=== PATIENT | female | born 1995 | race Caucasian/White ===

== ENCOUNTER 2018-03-05 10:49 | Outpatient (REF) | payer BC, SELFPAY ==
[2018-03-05 12:56] LABS: Abs Immature Grans 0.02 k/cumm (0.0-0.09); Absolute Basophil Count 0.06 k/cumm (0.0-0.2); Absolute Lymphocyte Count 2.96 k/cumm (1.2-3.4); Absolute Neutrophil Count 4.57 k/cumm (1.2-6.7); Basophils % 0.7; Eosinophils % 2.3; HCT 43.1 % (36.0-46.0); HGB 15.1 g/dL (12.0-15.5); Immature Grans % 0.2; Mean Corpuscular Volume 94.1 fL (80-95); Mean Platelet Volume 9.8 fL (8.0-11.0); Monocytes % 10.3; Neutrophils % 52.5; Platelet Count 330 x1000/uL (130-400); RBC 4.58 m/cumm (4.00-5.20); RBC Distribution Width 12.5 % (11.7-14.6); White Blood Cell Count 8.71 k/cumm (4.4-10.8)
[2018-03-05 13:16] LABS: Iron 91 ug/dL (50-175); Total Iron Binding Capacity 358 ug/dL (250-450); Transferrin Sat 25 % (15-50)
[2018-03-05 13:18] LABS: ALT 48 U/L (12-78); AST 13 U/L (15-37); Alkaline Phosphatase 106 U/L (46-116); Anion Gap 11.1 mmol/L (3-11); BUN 11 mg/dL (7-18); Bilirubin, Total 0.6 mg/dL (0.2-1.0); CO2 25.9 mmol/L (21.0-32.0); CREATININE 0.91 mg/dL (0.55-1.02); Calcium 8.9 mg/dL (8.5-10.1); Chloride 102 mmol/L (98-107); Ferritin 234 ng/mL (8-388); Glucose 111 mg/dL (70-100); Potassium 4.3 mmol/L (3.5-5.1); Sodium 139 mmol/L (136-145); Total Protein 7.4 g/dL (6.4-8.2)
== END 2018-03-05 10:50 ==
LOC: NCHCN 10:49
PROVIDERS: PCP Nurse Practitioner; Visit Provider Nurse Practitioner
DX: R19.7 Diarrhea, unspecified (principal)
CPT/HCPCS: 80053; 82728; 83540; 83550; 85025

== ENCOUNTER 2018-03-13 20:47 | Emergency (ER) | payer BC, SELFPAY ==
[2018-03-13 21:00] VITALS: BP 135/98; PULSE 102; RESP 18; TEMP 37.1; O2SAT 94
[2018-03-13 21:07] VITALS: O2SAT 96
[2018-03-13 21:10] VITALS: O2SAT 96
--- NOTE | 2018-03-13 21:18 | ED.GENADUL_ITS ---
Disposition Clinical Impression: Diarrhea, Abdominal cramping, Nausea Disposition: HOME Condition: Good Instructions: Acute Diarrhea (ED), Abdominal Pain (ED) Additional Instructions: Be sure to stay hydrated, Gatorade is fine. BRAT diet (bananas, rice, applesauce, toast) if you want to try eating. Be sure to contact primary care on Friday for follow-up. Return to ED for worsening abdominal pain, fever, bloody diarrhea, persistent vomiting. Prescriptions: Ondansetron ODT [Zofran Odt] 4 mg PO Q6H PRN #15 tabef PRN Reason: Nausea / Vomiting Referrals: Clara Davidson [Primary Care Provider] - Medical Decision Making - Lab Data Results reviewed for labs ordered during visit: Yes - Radiology Data Radiology results: report reviewed - Medical Decision Making Patient presenting with 3 weeks of diarrhea with worsening abdominal pain at this point. She has mildly diffuse tender abdomen. She does look a little dehydrated. IV will be established, fluids and Zofran ordered. Laboratory studies including stool studies if she is able to provide a sample ordered. CT scan of the abdomen pelvis to evaluate for colitis or inflammatory bowel disease is ordered. Patient's laboratory studies for the most part are unremarkable. test negative. Electrolytes normal. White count normal. C. difficile toxin negative. Other stool studies pending. CT scan of the abdomen pelvis shows no acute process. Patient does feel somewhat better after fluids and Zofran. She is able to tolerate liquids so we will have her to continue this at home. We will have her start a BRAT diet to see if this helps with the diarrhea. She will need to follow-up with primary care to get the referral to GI. We will need to contact her if any of her stool studies are positive. She should return if she develops fever, vomiting, worsening abdominal pain, bloody diarrhea. History of Present Illness - General Chief complaint: Abd Prob Stated complaint: UNKNOWN Time Seen by Provider: 03/13/18 20:48 Source: patient Mode of arrival: ambulatory Limitations: no limitations - History of Present Illness Initial comments: Patient presents to the ED with complaints of diarrhea and abdominal pain. She has also developed some nausea. Patient reports onset of watery diarrhea 3 weeks ago. Today is the first day that it has decreased and she has only had a couple episodes. In the last 3 days she has developed stabbing/cramping/ intermittent abdominal pain. Previously she had had some cramping pain prior to having diarrhea. She is now having more persistent yet intermittent cramping. She also has developed nausea. She really has not been eating because that makes her diarrhea worse. She has been able to hydrate and drink until today the nausea is been bothering her. There has been no fever. She has had no travel outside the [place]. She has had no recent antibiotic exposure. She has not been drinking from [place]. She does not work in healthcare. She has not really had problems like this previously. She did see her primary care who was supposed to refer her to GI but she has not heard back from them yet. She has developed a headache today. She has no other neurologic symptoms. - Related Data Ondansetron ODT [Zofran Odt] 4 mg PO Q6H PRN #15 tabef 03/14/18 Allergies Allergy/AdvReac Type Severity Reaction Status Date / Time Penicillins Allergy Intermediate Skin Rash Unverified 03/13/18 21:12 Review of Systems Constitutional: chills, malaise. denies: fever Eyes: denies: eye pain, vision change ENT: denies: ear pain, congestion Respiratory: denies: cough, shortness of breath Cardiovascular: denies: chest pain Gastrointestinal: abdominal pain, nausea, diarrhea. denies: vomiting, hematochezia Genitourinary: denies: urgency, dysuria, frequency Musculoskeletal: denies: back pain Skin: denies: rash Neurological: headache. denies: weakness, numbness Past Medical History - Past Medical History Medical history: no medical history Surgical history: no surgical history Psychiatric history: anxiety, depression - Social History Smoking status: never smoker Alcohol use: none Drug use: none General Exam - General Limitations: no limitations General appearance: alert, in no apparent distress - Head Head exam: Present: atraumatic, normocephalic - Eye Eye exam: Present: normal apperance. Absent: scleral icterus - ENT ENT exam: Present: mucous membranes dry - Neck Neck exam: Present: normal inspection, full ROM - Respiratory Respiratory exam: Present: normal lung sounds bilaterally - Cardiovascular Cardiovascular Exam: Present: regular rate, normal rhythm, normal heart sounds - GI/Abdominal GI/Abdominal exam: Present: soft, tenderness (Mild diffuse tenderness). Absent : distended, guarding, rebound, rigid - Extremities Exam Extremities exam: Present: normal inspection. Absent: tenderness - Back Exam Back exam: Absent: CVA tenderness (R), CVA tenderness (L) - Neurological Exam Neurological exam: Present: alert, oriented X3, CN II-XII intact. Absent: motor sensory deficit - Psychiatric Psychiatric exam: Present: normal affect, normal mood - Skin Skin exam: Present: warm, dry, intact Course Vital Signs - 24 hr 03/13/18 21:00 Temperature 98.8 F Pulse 102 H Respiratory 18 Rate Blood Pressure 135/98 Pulse Oximetry 94 L
--- NOTE | 2018-03-13 21:36 | DI.RPTCT_ITS ---
SYMPTOM/DIAGNOSIS: ABDOMINAL PAIN AND DIARRHEA CT ABDOMEN AND PELVIS: Comparison is made with 08 August 2017. Images were performed from the lung bases through the ischial tuberosities after IV and oral contrast. The lung bases are clear. The liver, spleen, gallbladder, pancreas, kidneys and adrenals as well as bladder appear normal. The uterus and ovaries are unremarkable. The appendix is normal in diameter. The small bowel and colon are well opacified with oral contrast and no inflammatory changes or dilatation is seen. There is no free air or free fluid. IMPRESSION: Negative CT of the abdomen and pelvis.
[2018-03-13 21:38] VITALS: O2SAT 97
[2018-03-13] MEDS: Lactated Ringers 1,000 ML 1000 ML IV (22:11)
[2018-03-13 22:12] LABS: Abs Immature Grans 0.01 k/cumm (0.0-0.09); Absolute Basophil Count 0.07 k/cumm (0.0-0.2); Absolute Eosinophil Count 0.13 k/cumm (0.0-0.7); Absolute Monocyte Count 0.86 k/cumm (0.11-0.7); Absolute Neutrophil Count 4.96 k/cumm (1.2-6.7); Basophils % 0.8; Eosinophils % 1.5; HCT 44.8 % (36.0-46.0); HGB 16.1 g/dL (12.0-15.5); Immature Grans % 0.1; Lymphocytes % 30.9; Mean Corp. HGB Concentration 35.9 g/dL (32.0-36.0); Mean Corpuscular Hemoglobin 33.1 pg (27.0-33.0); Mean Corpuscular Volume 92.2 fL (80-95); Mean Platelet Volume 9.1 fL (8.0-11.0); Monocytes % 9.9; Neutrophils % 56.8; Platelet Count 387 x1000/uL (130-400); RBC 4.86 m/cumm (4.00-5.20); RBC Distribution Width 12.4 % (11.7-14.6); White Blood Cell Count 8.73 k/cumm (4.4-10.8)
[2018-03-13] MEDS: Ondansetron 4 MG/2 ML VIAL IVP (22:12)
[2018-03-13] MEDS: Ketorolac 30 MG/ML VIAL 15 MG IVP (22:12)
[2018-03-13 22:27] LABS: HCG Qual (Serum) Negative
[2018-03-13 22:29] LABS: ALT 40 U/L (12-78); AST 17 U/L (15-37); Albumin 4.2 g/dL (3.4-5.0); Alkaline Phosphatase 94 U/L (46-116); Anion Gap 9.6 mmol/L (3-11); BUN 7 mg/dL (7-18); Bilirubin, Total 1.2 mg/dL (0.2-1.0); CO2 30.4 mmol/L (21.0-32.0); CREATININE 0.91 mg/dL (0.55-1.02); Calcium 9.2 mg/dL (8.5-10.1); Chloride 102 mmol/L (98-107); Glucose 84 mg/dL (70-100); Lipase 94 U/L (73-393); Magnesium 2.3 mg/dL (1.8-2.4); Potassium 3.9 mmol/L (3.5-5.1); Sodium 142 mmol/L (136-145); Total Protein 8.3 g/dL (6.4-8.2)
[2018-03-13] MEDS: Omnipaque 350 MG/ML 100 ML BTL IJ (23:19)
[2018-03-13 23:22] VITALS: O2SAT 97
[2018-03-13 23:27] VITALS: BP 118/103; PULSE 97; O2SAT 99
--- NOTE | 2018-03-13 23:38 | DI.VRAD_ITS ---
EXAM: CT Abdomen and Pelvis With Intravenous Contrast CLINICAL HISTORY: 23 years old, female; Pain; Abdominal pain TECHNIQUE: Axial computed tomography images of the abdomen and pelvis with intravenous contrast. Coronal and sagittal reformatted images were created and reviewed. COMPARISON: CT - UPPER ABD WITH CONTRAST (P) 2017-08-08 13:28 FINDINGS: Lung bases: Unremarkable. No mass. No consolidation. ABDOMEN: Liver: Unremarkable. No mass. Gallbladder and bile ducts: Unremarkable. No calcified stones. No ductal dilation. Pancreas: Unremarkable. No mass. No ductal dilation. Spleen: Unremarkable. No splenomegaly. Adrenals: Unremarkable. No mass. Kidneys and ureters: Unremarkable. No solid mass. No hydronephrosis. Stomach and bowel: Unremarkable. No obstruction. No mucosal thickening. PELVIS: Appendix: Normal appendix. Bladder: Unremarkable. No mass. Reproductive: Unremarkable as visualized. ABDOMEN and PELVIS: Intraperitoneal space: Unremarkable. No free air. No significant fluid collection. Bones/joints: No acute fracture. No dislocation. Soft tissues: Unremarkable. Vasculature: Unremarkable. No abdominal aortic aneurysm. Lymph nodes: Unremarkable. No enlarged lymph nodes. IMPRESSION: No acute findings. Dictated and Authenticated by: Moises Lawson MD. Ordering:ABDIAS RIOS MD
[2018-03-14 00:37] VITALS: BP 115/93; PULSE 95; RESP 18; O2SAT 99
[2018-03-16 14:07] LABS: Campylobacter PCR SEE COMMENTS; Salmonella PCR SEE COMMENTS; Shiga Toxin PCR SEE COMMENTS; Shigella/Enteroinvasive Ecoli SEE COMMENTS
== END 2018-03-14 00:37 | disposition home or self-care (01) ==
PROVIDERS: Emergency Provider Emergency Medicine; PCP Nurse Practitioner
DX: R11.0 Nausea (principal); R19.7 Diarrhea, unspecified; R10.84 Generalized abdominal pain
CPT/HCPCS: 36415; 80053; 81025; 83690; 87329; 87505; 96374; 96375; 99285; 74177; 83735; 84703; 85025; 87324; J1885; J2405; J3490

== ENCOUNTER 2018-04-23 06:09 | Emergency (ER) | payer BC, SELFPAY ==
[2018-04-23 06:13] VITALS: BP 132/85; PULSE 91; RESP 18; TEMP 36.5; O2SAT 98
[2018-04-23 06:18] LABS: Bilirubin Negative (Negative); Blood Negative (Negative); Clarity Sl Cloudy; Glucose Negative (Negative); Ketones Negative (Negative); Leukocyte Esterase Small (Negative); Nitrite Negative (Negative); Specific Gravity <= 1.005 (1.005-1.025); Urobilinogen 0.2 EU/dL (Up TO 0.2); pH 5.5 (5-8)
--- NOTE | 2018-04-23 06:24 | W.ED.GENAD ---
Discharge Plan Disposition Patient Disposition: HOME Condition: Good Discharge Details Chief Complaint: Urinary Clinical Impression: UTI (urinary tract infection) Primary Care Provider: Clara Davidson ED Provider: Mynor Swartz Meds and New Rx's Prescriptions: New phenazopyridine 100 mg tablet 100 mg PO TID Qty: 5 RF: 0 nitrofurantoin monohyd/m-cryst 100 mg capsule 100 mg PO BID Qty: 9 RF: 0 Continue khrdqefx-qmjyhtlk-imtfgdc fum [Multi Vitamin] 9 mg iron/15 mL Liquid 1 tab PO DAILY RF: 0 lactobacillus combination no.4 [Probiotic] 3 billion cell Capsule 1 cap PO DAILY RF: 0 Discharge Instructions Instructions: Urinary Tract Infection in Women (ED) Additional Instructions: Take medications as prescribed. You have had your first dose here. Follow-up with primary care next week if not better. Return to ED if fever, flank pain, vomiting, other concerns. Referrals: Clara Davidson [Primary Care Provider] - Medical Decision Making MDM Narrative Medical decision making narrative: Patient with urinary symptoms consistent with UTI. No systemic signs or symptoms. Vitals good. Urine is negative. U/A is contaminated but symptoms and history consistent so will simply treat for cystitis. Patient requesting Diflucan as she always gets yeast infection with antibiotics. Will give MacroBid and Pyridium for UTI. Follow up with PCP if not better. Return to ED for fever, flank pain, vomiting, other concerns. Lab Data Lab results reviewed: Yes I reviewed the patient's lab results. Lab Results 04/23/18 Range/Units 06:10 Urine Color Yellow (Yellow) Urine Clarity Sl cloudy Urine pH 5.5 (5-8) Ur Specific [place] <= 1.005 (1.005-1.025) Urine Protein Negative (Negative) mg/dL Urine Ketones Negative (Negative) mg/dL Urine Blood Negative (Negative) Urine Nitrite Negative (Negative) Urine Bilirubin Negative (Negative) Urine Urobilinogen 0.2 (Up TO 0.2) EU/dL Ur Leukocyte Esterase Small H (Negative) Urine Glucose Negative (Negative) mg/dL HPI - General Adult General Mode of arrival: ambulatory. Date/Time Provider Initiated Documentation: 04/23/18 06:24. Limitations to Documentation: no limitations. Information obtained by: patient. HPI Narrative: Patient presents with dysuria and urgency that started within the last day. Has a long history of UTIs. Denies fever, chills, flank pain, hematuria, pelvic pain, abdominal pain. Is supposed to be leaving for vacation tomorrow morning. Related Data Home Medications Medication Instructions Recorded Confirmed lactobacillus combination no.4 1 cap PO DAILY 04/23/18 04/23/18 [Probiotic] [id number]-dxrwyoeh-vobzgbx fum 1 tab PO DAILY 04/23/18 04/23/18 [Multi Vitamin] Previous Rx's Medication Instructions Recorded nitrofurantoin monohyd/m-cryst 100 mg PO BID #9 cap 04/23/18 phenazopyridine 100 mg PO TID #5 tab 04/23/18 Allergies Allergy/AdvReac Type Severity Reaction Status Date / Time Penicillins Allergy Intermediate Skin Rash Unverified 04/23/18 06:16 General Stated Complaint: Urinary GLADYS: 4 Review of Systems Constitutional Denies chills, Denies fever(s), Denies malaise and Denies weakness Gastrointestinal Denies abdominal pain, Denies diarrhea, Denies nausea and Denies vomiting Genitourinary Denies hematuria, Reports dysuria, Denies pelvic pain, Denies flank pain, Reports urinary urgency and Denies vaginal discharge Neurologic Denies weakness [facility] Social History Smoking/Tobacco Use Status: Never Exam Const General: cooperative, comfortable and no acute distress Orientation: alert and oriented x3 GI Inspection: non-distended Palpation: soft, not firm and nontender Back/Spine/Pelvis Back: no CVA tenderness Neuro General: alert, oriented x3, no focal motor deficits and CN's II-XI intact bilaterally Course Vital Signs Temperature 97.7 F 04/23/18 06:13 Pulse 91 H 04/23/18 06:13 Respiratory Rate 18 04/23/18 06:13 Blood Pressure 132/85 04/23/18 06:13 Pulse Oximetry 98 04/23/18 06:13 Temperature 97.7 F 04/23/18 06:13 Pulse 91 H 04/23/18 06:13 Respiratory Rate 18 04/23/18 06:13 Blood Pressure 132/85 04/23/18 06:13 Pulse Oximetry 98 04/23/18 06:13 Lab/Test Results Lab/Test Results: Laboratory Tests 04/23/18 06:10 Urine Color Yellow Urine Clarity Sl cloudy Urine pH 5.5 Ur Specific [place] <= 1.005 Urine Protein Negative Urine Ketones Negative Urine Blood Negative Urine Nitrite Negative Urine Bilirubin Negative Urine Urobilinogen 0.2 Ur Leukocyte Esterase Small H Urine Glucose Negative Lab Results 04/23/18 Range/Units 06:10 Urine Color Yellow (Yellow) Urine Clarity Sl cloudy Urine pH 5.5 (5-8) Ur Specific [place] <= 1.005 (1.005-1.025) Urine Protein Negative (Negative) mg/dL Urine Ketones Negative (Negative) mg/dL Urine Blood Negative (Negative) Urine Nitrite Negative (Negative) Urine Bilirubin Negative (Negative) Urine Urobilinogen 0.2 (Up TO 0.2) EU/dL Ur Leukocyte Esterase Small H (Negative) Urine Glucose Negative (Negative) mg/dL
[2018-04-23 06:26] LABS: Bacteria Rare HPF (Negative); C & S Indicated? No/Sq. Contamination; Casts Negative LPF (Negative); Crystals Negative HPF (Negative); Epithelial Cells Many HPF (Negative); Mucus Negative (Negative); RBC 0-2 (0-2); WBC 0-2 HPF (0-5)
--- NOTE | 2018-04-23 06:32 | ED.GENADUL_ITS ---
Discharge Plan Disposition Patient Disposition: HOME Condition: Good Discharge Details Chief Complaint: Urinary Clinical Impression: UTI (urinary tract infection) Primary Care Provider: Clara Davidson ED Provider: Mynor Swartz Meds and New Rx's Prescriptions: New phenazopyridine 100 mg tablet 100 mg PO TID Qty: 5 RF: 0 nitrofurantoin monohyd/m-cryst 100 mg capsule 100 mg PO BID Qty: 9 RF: 0 Continue syltkjhr-blfqauxa-reetcch fum [Multi Vitamin] 9 mg iron/15 mL Liquid 1 tab PO DAILY RF: 0 lactobacillus combination no.4 [Probiotic] 3 billion cell Capsule 1 cap PO DAILY RF: 0 Discharge Instructions Instructions: Urinary Tract Infection in Women (ED) Additional Instructions: Take medications as prescribed. You have had your first dose here. Follow-up with primary care next week if not better. Return to ED if fever, flank pain, vomiting, other concerns. Referrals: Clara Davidson [Primary Care Provider] - Medical Decision Making MDM Narrative Medical decision making narrative: Patient with urinary symptoms consistent with UTI. No systemic signs or symptoms. Vitals good. Urine is negative. U/A is contaminated but symptoms and history consistent so will simply treat for cystitis. Patient requesting Diflucan as she always gets yeast infection with antibiotics. Will give MacroBid and Pyridium for UTI. Follow up with PCP if not better. Return to ED for fever, flank pain, vomiting , other concerns. Lab Data Lab results reviewed: Yes I reviewed the patient's lab results. Lab Results 04/23/18 Range/Units 06:10 Urine Color Yellow (Yellow) Urine Clarity Sl cloudy Urine pH 5.5 (5-8) Ur Specific [place] <= 1.005 (1.005-1.025) Urine Protein Negative (Negative) mg/dL Urine Ketones Negative (Negative) mg/dL Urine Blood Negative (Negative) Urine Nitrite Negative (Negative) Urine Bilirubin Negative (Negative) Urine Urobilinogen 0.2 (Up TO 0.2) EU/dL Ur Leukocyte Esterase Small H (Negative) Urine Glucose Negative (Negative) mg/dL HPI - General Adult General Mode of arrival: ambulatory . Date/Time Provider Initiated Documentation: 04/23/18 06:24 . Limitations to Documentation: no limitations . Information obtained by: patient . HPI Narrative: Patient presents with dysuria and urgency that started within the last day. Has a long history of UTIs. Denies fever, chills, flank pain, hematuria, pelvic pain, abdominal pain. Is supposed to be leaving for vacation tomorrow morning. Related Data Home Medications Medication Instructions Recorded Confirmed lactobacillus combination no.4 1 cap PO DAILY 04/23/18 04/23/18 [Probiotic] bdqmlgye-zmftdrch-dmbnvck fum 1 tab PO DAILY 04/23/18 04/23/18 [Multi Vitamin] Previous Rx's Medication Instructions Recorded nitrofurantoin monohyd/m-cryst 100 mg PO BID #9 cap 04/23/18 phenazopyridine 100 mg PO TID #5 tab 04/23/18 Allergies Allergy/AdvReac Type Severity Reaction Status Date / Time Penicillins Allergy Intermediate Skin Rash Unverified 04/23/18 06:16 General Stated Complaint: Urinary GLADYS: 4 Review of Systems Constitutional Denies chills, Denies fever(s), Denies malaise and Denies weakness Gastrointestinal Denies abdominal pain, Denies diarrhea, Denies nausea and Denies vomiting Genitourinary Denies hematuria, Reports dysuria, Denies pelvic pain, Denies flank pain, Reports urinary urgency and Denies vaginal discharge Neurologic Denies weakness [facility] Social History Smoking/Tobacco Use Status: Never Exam Const General: cooperative, comfortable and no acute distress Orientation: alert and oriented x3 GI Inspection: non-distended Palpation: soft, not firm and nontender Back/Spine/Pelvis Back: no CVA tenderness Neuro General: alert, oriented x3, no focal motor deficits and CN's II-XI intact bilaterally Course Vital Signs Temperature 97.7 F 04/23/18 06:13 Pulse 91 H 04/23/18 06:13 Respiratory Rate 18 04/23/18 06:13 Blood Pressure 132/85 04/23/18 06:13 Pulse Oximetry 98 04/23/18 06:13 Temperature 97.7 F 04/23/18 06:13 Pulse 91 H 04/23/18 06:13 Respiratory Rate 18 04/23/18 06:13 Blood Pressure 132/85 04/23/18 06:13 Pulse Oximetry 98 04/23/18 06:13 Lab/Test Results Lab/Test Results: Laboratory Tests 04/23/18 06:10 Urine Color Yellow Urine Clarity Sl cloudy Urine pH 5.5 Ur Specific [place] <= 1.005 Urine Protein Negative Urine Ketones Negative Urine Blood Negative Urine Nitrite Negative Urine Bilirubin Negative Urine Urobilinogen 0.2 Ur Leukocyte Esterase Small H Urine Glucose Negative Lab Results 04/23/18 Range/Units 06:10 Urine Color Yellow (Yellow) Urine Clarity Sl cloudy Urine pH 5.5 (5-8) Ur Specific [place] <= 1.005 (1.005-1.025) Urine Protein Negative (Negative) mg/dL Urine Ketones Negative (Negative) mg/dL Urine Blood Negative (Negative) Urine Nitrite Negative (Negative) Urine Bilirubin Negative (Negative) Urine Urobilinogen 0.2 (Up TO 0.2) EU/dL Ur Leukocyte Esterase Small H (Negative) Urine Glucose Negative (Negative) mg/dL
[2018-04-23] MEDS: Fluconazole 150 MG TAB PO (06:38)
[2018-04-23] MEDS: MacroBID 100 MG CAP PO (06:38)
[2018-04-23] MEDS: Phenazopyridine 100 MG TAB PO (06:38)
[2018-04-23 06:51] VITALS: BP 132/85; PULSE 91; RESP 18; TEMP 36.5; O2SAT 98
== END 2018-04-23 06:51 | disposition home or self-care (01) ==
PROVIDERS: Emergency Provider Emergency Medicine; PCP Nurse Practitioner
DX: N39.0 Urinary tract infection, site not specified (principal); Z87.440 Personal history of urinary (tract) infections
CPT/HCPCS: 81025; 99283; 81003; 81015

== ENCOUNTER 2018-04-27 11:48 | Outpatient (REF) | payer BC, SELFPAY | END 2018-04-27 12:08 | LOC: NCHCN 11:48 | PROVIDERS: PCP Nurse Practitioner; Visit Provider Nurse Practitioner | DX: N91.1 Secondary amenorrhea (principal); Z87.440 Personal history of urinary (tract) infections | CPT/HCPCS: 87086 ==

== ENCOUNTER 2018-05-05 21:06 | Emergency (ER) | payer BC, SELFPAY ==
[2018-05-05 21:11] VITALS: BP 146/98; PULSE 99; RESP 16; TEMP 36.7; O2SAT 99
[2018-05-05 21:34] LABS: Bilirubin Negative (Negative); Blood Negative (Negative); Clarity Clear; Glucose Negative (Negative); Ketones Negative (Negative); Leukocyte Esterase Negative (Negative); Nitrite Negative (Negative); Specific Gravity <= 1.005 (1.005-1.025); Urobilinogen 0.2 EU/dL (Up TO 0.2); pH 5.5 (5-8)
--- NOTE | 2018-05-05 21:38 | DI.CT_ITS ---
SYMPTOM/DIAGNOSIS: RLQ PAIN ABDOMEN AND PELVIC CT: CT scan of the abdomen and pelvis was performed following the uneventful administration of intravenous contrast material. Comparison is made with . The lung bases show no acute abnormalities. The liver is unremarkable. The portal and superior mesenteric veins have a normal appearance. The gallbladder is contracted but unremarkable. No biliary ductal dilatation is seen. The pancreas, spleen and adrenal glands are unremarkable. The kidneys show normal and symmetric enhancement. No evidence of a solid renal mass or obstruction. The urinary bladder is intact. The reproductive organs are unremarkable. Note is made of a dominant cyst on the left ovary measuring 2.9 cm. The aorta is of normal caliber. No significant abdominal or pelvic adenopathy, ascites or pneumoperitoneum is present. The bowel shows no evidence of obstruction or infection or inflammation. There is a normal appendix seen in the right lower quadrant. The bones are intact. IMPRESSION: No evidence of an acute abdomen.
--- NOTE | 2018-05-05 21:49 | W.ED.GENAD ---
Discharge Plan Disposition Patient Disposition: HOME Condition: Good Discharge Details Chief Complaint: Urinary Clinical Impression: Bacterial vaginosis, Dysuria Primary Care Provider: Clara Davidson ED Provider: Mynor Swartz Meds and New Rx's Prescriptions: New metronidazole 500 mg tablet 500 mg PO BID Qty: 13 RF: 0 Continue detdtpgv-etgogrrm-bvnkmpt fum [Multi Vitamin] 9 mg iron/15 mL Liquid 1 tab PO DAILY RF: 0 lactobacillus combination no.4 [Probiotic] 3 billion cell Capsule 1 cap PO DAILY RF: 0 phenazopyridine 100 mg tablet 100 mg PO TID Qty: 5 RF: 0 doxycycline monohydrate 100 mg Capsule 100 mg PO BID RF: 0 Discharge Instructions Instructions: Metronidazole (By mouth), Bacterial Vaginosis (ED) Additional Instructions: Will start you on Flagyl for bacterial vaginosis but it is unclear whether this is causing some your symptoms or not. Please do not drink alcohol. Follow[facility]up in [facility] within the next week. We will also refer you to urology since most of these symptoms appear to be urinary in nature. Return to ED for fever, vomiting, worsening abdominal pain, other concerns. Referrals: [facility] [Provider Group] [facility] [Provider Group] Discharge Data Discharge Date/Time-TO BE ENTERED AT DEPARTURE: 05/06/18 00:48 Medical Decision Making <Fredy Flynn DO - Last Filed: 05/06/18 13:32> This is a pleasant 23-year-old female who presents for urinary symptoms Week she has been he has been on 2 full courses of antibiotics the first is Bactrim the second was doxycycline. She has notable right lower quadrant pain on exam, as well as left and right CVA tenderness. Urinalysis is completely benign. No white count on WBC/CBC. We will get a CT scan to evaluate for any acute pathology, including appendicitis, intra-abdominal abscess, or other acute pathology. The patient CT scan results demonstrate no acute process. There is a 2.7 cm cyst per virtual radiology but no evidence of acute appendicitis or other abnormality. Vaginal exam was performed with female nurse at bedside, no significant discharge, no erythema, no lesions. No active bleeding. Patient did have mild tenderness on cervical motion, as well as mild tenderness on bimanual exam. Of note with cervical motion tenderness she did have radiation to her umbilical region. We are waiting on vaginal pathology reports. I do not think that Rocephin or doxycycline are indicated at this time as she had a prolonged course of back and doxycycline already. Gonorrhea or chlamydia results return positive then she may need additional treatment. Patient will require outpatient follow-up with both gynecology and urology. We will facilitate this. The case will be signed out to my colleague Dr. Swartz who will follow up on the vaginal smear results, necessary treatment, and final discharge paperwork. I have extensively reviewed the treatment plan and discharge instructions with the patient. I have addressed all patient concerns at this time. The patient was made aware of what symptoms to monitor for that would warrant a return to the emergency department. Discussed the plan with the patient, they demonstrate verbal understanding and agreement with our assessment and plan at this time. HPI <Fredy Flynn, - Last Filed: 05/06/18 13:32> General Date/Time Provider Initiated Documentation: 05/05/18 21:37. HPI Narrative: This is a 23-year-old female with no significant past medical history who presents today for evaluation of urinary frequency, and suprapubic pain. Patient states that she is diagnosed with urinary tract infection 2 weeks ago, started on Bactrim, and had a full course of this with no improvement of her symptoms. She was then switched to a 7-day course of doxycycline. She has completed the doxycycline and still has no improvement. In addition to that she states that her pain has actually worsened with increased urinary frequency, increased pressure, and she now states that she has back/flank pain on her left and right side. She denies any vomiting but does admit to some mild nausea. Patient denies any other complaints at this time she denies any recent surgeries. She denies any IV or illicit drug use. She denies any pertinent family history except for her father had a history of bladder cancer. She denies any vaginal discharge, hematuria, fever, or chills. She has no other complaints. Related Data Home Medications Medication Instructions Recorded Confirmed lactobacillus combination no.4 1 cap PO DAILY 04/23/18 05/05/18 [Probiotic] uhjhwgqf-zixfdfqr-mtopqtj fum 1 tab PO DAILY 04/23/18 05/05/18 [Multi Vitamin] phenazopyridine 100 mg PO TID #5 tab 04/23/18 05/05/18 doxycycline monohydrate 100 mg PO BID 05/05/18 05/05/18 metronidazole 500 mg PO BID #13 tab 05/06/18 Previous Rx's Medication Instructions Recorded phenazopyridine 100 mg PO TID #5 tab 04/23/18 metronidazole 500 mg PO BID #13 tab 05/06/18 Allergies Allergy/AdvReac Type Severity Reaction Status Date / Time Penicillins Allergy Intermediate Skin Rash Unverified 05/05/18 21:16 General Stated Complaint: Urinary GLADYS: 4 Review of Systems <Fredy Flynn DO - Last Filed: 05/06/18 13:32> Review of Systems All systems reviewed & are unremarkable except as noted in HPI and below Exam <Fredyvinayak Flynn - Last Filed: 05/06/18 13:32> Narrative Exam Narrative: 1.Const: Well-nourished, Well-developed, appearing stated age 2.Eyes: PERRL, no conjunctival injection, and symmetrical lids. 3.ENT: Atraumatic external nose and ears. Moist MM. Neck: Symmetric, trachea midline, No thyromegaly. 4.CVS: +S1/S2, No murmurs or gallops. Peripheral pulses 2+ and equal in all extremities. Brisk capillary refill in all extremities. 5.RESP: Unlabored respiratory effort. Clear to auscultation bilaterally. No wheezes rales or rhonchi 6.GI: Soft, notable tenderness in the right lower quadrant, negative Dykes sign, notable pain at McBurney's point. Positive obturator sign. Notable left-sided CVA tenderness, and right CVA tenderness. Mild left lower quadrant tenderness and pain. No guarding or rebound. 7.MSK: Normocephalic/Atraumatic, Extremities w/o deformity or ttp No cyanosis or clubbing, Normal movement of all extremities 8.Skin: Warm, Dry. No rashes or lesions. 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 Sensation grossly intact, no focal neurologic deficits. 10.Psych: (AAO) x3. Appropriate mood and affect Course <Fredyvinayak Flynn DO - Last Filed: 05/06/18 13:32> Vital Signs Temperature 36.7 C 05/05/18 21:11 Pulse 99 H 05/05/18 21:11 Respiratory Rate 16 05/05/18 21:11 Blood Pressure 146/98 H 05/05/18 21:11 Pulse Oximetry 99 05/05/18 21:11 Temperature 36.7 C 05/05/18 21:11 Temperature Source Skin 05/05/18 21:11 Pulse 99 H 05/05/18 21:11 Respiratory Rate 16 05/05/18 21:11 Respiratory Effort Non-Labored 05/05/18 21:14 Blood Pressure 146/98 H 05/05/18 21:11 Blood Pressure Position Sitting 05/05/18 21:11 Pulse Oximetry 99 05/05/18 21:11 Oxygen Delivery Method Room Air 05/05/18 21:11 Oxygen Flow Rate 0 05/05/18 21:11 Pain Level 6 05/05/18 21:14 Lab/Test Results Lab/Test Results: Laboratory Tests Range/Units 05/05/18 21:29 Urine Color (Yellow) Yellow Urine Clarity Clear Urine pH (5-8) 5.5 Ur Specific [place] (1.005-1.025) <= 1.005 Urine Protein (Negative) mg/dL Negative Urine Ketones (Negative) mg/dL Negative Urine Blood (Negative) Negative Urine Nitrite (Negative) Negative Urine Bilirubin (Negative) Negative Urine Urobilinogen (Up TO 0.2) EU/dL 0.2 Ur Leukocyte Esterase (Negative) Negative Urine Glucose (Negative) mg/dL Negative Sign Out <Fredy Flynn DO - Last Filed: 05/06/18 13:32> Sign Out Data: Sign Out Comment: pending CT Last updated by Fredy Flynn DO at 05/05/18 23:11 Post-Handoff Eval: Patient signed out to me pending vaginal path results. Patient had presented with continued urinary symptoms despite 2 weeks of different antibiotics. She was initially seen by Dr. Flynn, who performed history and physical. [place] she had fairly significant abdominal tenderness so laboratory studies and CT scan were done. Patient laboratory studies were unremarkable. Urinalysis negative. test negative. CT scan unremarkable other than left ovarian cyst which is not likely causing her symptoms. Pelvic exam reported as mild cervical motion tenderness but nothing significant. Vaginal path probe positive for Gardnerella. GC and Chlamydia pending. Unclear if bacterial vaginosis could be causing her symptoms. We will go ahead and put her on Flagyl and have her follow-up with [facility]. Also consider referral to urology, Dr. Foy as most of her complaints are frequency, urgency, dysuria.
[2018-05-05] MEDS: Normal Saline 1,000 ML 1000 ML IV (21:51)
[2018-05-05] MEDS: Ketorolac 30 MG/ML VIAL IM (21:51)
[2018-05-05 21:53] LABS: Abs Immature Grans 0.02 k/cumm (0.0-0.09); Absolute Basophil Count 0.05 k/cumm (0.0-0.2); Absolute Eosinophil Count 0.24 k/cumm (0.0-0.7); Absolute Lymphocyte Count 3.57 k/cumm (1.2-3.4); Absolute Monocyte Count 0.99 k/cumm (0.11-0.7); Absolute Neutrophil Count 5.39 k/cumm (1.2-6.7); Basophils % 0.5; Eosinophils % 2.3; HCT 45.2 % (36.0-46.0); HGB 15.9 g/dL (12.0-15.5); Immature Grans % 0.2; Lymphocytes % 34.8; Mean Corp. HGB Concentration 35.2 g/dL (32.0-36.0); Mean Corpuscular Hemoglobin 32.8 pg (27.0-33.0); Mean Corpuscular Volume 93.2 fL (80-95); Mean Platelet Volume 9.3 fL (8.0-11.0); Monocytes % 9.6; Neutrophils % 52.6; Platelet Count 319 x1000/uL (130-400); RBC 4.85 m/cumm (4.00-5.20); RBC Distribution Width 12.4 % (11.7-14.6); White Blood Cell Count 10.26 k/cumm (4.4-10.8)
[2018-05-05 22:09] LABS: ALT 81 U/L (12-78); AST 37 U/L (15-37); Albumin 4.2 g/dL (3.4-5.0); Alkaline Phosphatase 105 U/L (46-116); Anion Gap 5.8 mmol/L (3-11); BUN 11 mg/dL (7-18); Bilirubin, Total 0.8 mg/dL (0.2-1.0); CO2 32.2 mmol/L (21.0-32.0); CREATININE 0.83 mg/dL (0.55-1.02); Calcium 9.7 mg/dL (8.5-10.1); Chloride 100 mmol/L (98-107); Glucose 96 mg/dL (70-100); Lipase 126 U/L (73-393); Potassium 3.7 mmol/L (3.5-5.1); Sodium 138 mmol/L (136-145); Total Protein 8.3 g/dL (6.4-8.2)
[2018-05-05] MEDS: Omnipaque 350 MG/ML 100 ML BTL IV (22:15)
--- NOTE | 2018-05-05 22:25 | ED.GENADUL_ITS ---
Discharge Plan Disposition Patient Disposition: HOME Condition: Good Discharge Details Chief Complaint: Urinary Clinical Impression: Bacterial vaginosis, Dysuria Primary Care Provider: Clara Davidson ED Provider: Mynor Swartz Meds and New Rx's Prescriptions: New metronidazole 500 mg tablet 500 mg PO BID Qty: 13 RF: 0 Continue zsskohdx-okftplif-cutfffm fum [Multi Vitamin] 9 mg iron/15 mL Liquid 1 tab PO DAILY RF: 0 lactobacillus combination no.4 [Probiotic] 3 billion cell Capsule 1 cap PO DAILY RF: 0 phenazopyridine 100 mg tablet 100 mg PO TID Qty: 5 RF: 0 doxycycline monohydrate 100 mg Capsule 100 mg PO BID RF: 0 Discharge Instructions Instructions: Metronidazole (By mouth), Bacterial Vaginosis (ED) Additional Instructions: Will start you on Flagyl for bacterial vaginosis but it is unclear whether this is causing some your symptoms or not. Please do not drink alcohol. Follow-up in [facility] within the next week. We will also refer you to urology since most of these symptoms appear to be urinary in nature. Return to ED for fever, vomiting, worsening abdominal pain, other concerns. Referrals: [facility] [Provider Group] [facility] [Provider Group] Discharge Data Discharge Date/Time-TO BE ENTERED AT DEPARTURE: 05/06/18 00:48 Medical Decision Making <Fredy Flynn DO - Last Filed: 05/06/18 13:32> This is a pleasant 23-year-old female who presents for urinary symptoms Week she has been he has been on 2 full courses of antibiotics the first is Bactrim the second was doxycycline. She has notable right lower quadrant pain on exam, as well as left and right CVA tenderness. Urinalysis is completely benign. No white count on WBC/CBC. We will get a CT scan to evaluate for any acute pathology, including appendicitis, intra-abdominal abscess, or other acute pathology. The patient CT scan results demonstrate no acute process. There is a 2.7 cm cyst per virtual radiology but no evidence of acute appendicitis or other abnormality. Vaginal exam was performed with female nurse at bedside, no significant discharge, no erythema, no lesions. No active bleeding. Patient did have mild tenderness on cervical motion, as well as mild tenderness on bimanual exam. Of note with cervical motion tenderness she did have radiation to her umbilical region. We are waiting on vaginal pathology reports. I do not think that Rocephin or doxycycline are indicated at this time as she had a prolonged course of back and doxycycline already. Gonorrhea or chlamydia results return positive then she may need additional treatment. Patient will require outpatient follow-up with both gynecology and urology. We will facilitate this. The case will be signed out to my colleague Dr. Swartz who will follow up on the vaginal smear results, necessary treatment, and final discharge paperwork. I have extensively reviewed the treatment plan and discharge instructions with the patient. I have addressed all patient concerns at this time. The patient was made aware of what symptoms to monitor for that would warrant a return to the emergency department. Discussed the plan with the patient, they demonstrate verbal understanding and agreement with our assessment and plan at this time. HPI <Fredy Flynn, - Last Filed: 05/06/18 13:32> General Date/Time Provider Initiated Documentation: 05/05/18 21:37 . HPI Narrative: This is a 23-year-old female with no significant past medical history who presents today for evaluation of urinary frequency, and suprapubic pain. Patient states that she is diagnosed with urinary tract infection 2 weeks ago, started on Bactrim, and had a full course of this with no improvement of her symptoms. She was then switched to a 7-day course of doxycycline. She has completed the doxycycline and still has no improvement. In addition to that she states that her pain has actually worsened with increased urinary frequency, increased pressure, and she now states that she has back/flank pain on her left and right side. She denies any vomiting but does admit to some mild nausea. Patient denies any other complaints at this time she denies any recent surgeries. She denies any IV or illicit drug use. She denies any pertinent family history except for her father had a history of bladder cancer. She denies any vaginal discharge, hematuria, fever, or chills. She has no other complaints. Related Data Home Medications Medication Instructions Recorded Confirmed lactobacillus combination no.4 1 cap PO DAILY 04/23/18 05/05/18 [Probiotic] fhwbwmyo-tjetpmww-tgefyku fum 1 tab PO DAILY 04/23/18 05/05/18 [Multi Vitamin] phenazopyridine 100 mg PO TID #5 tab 04/23/18 05/05/18 doxycycline monohydrate 100 mg PO BID 05/05/18 05/05/18 metronidazole 500 mg PO BID #13 tab 05/06/18 Previous Rx's Medication Instructions Recorded phenazopyridine 100 mg PO TID #5 tab 04/23/18 metronidazole 500 mg PO BID #13 tab 05/06/18 Allergies Allergy/AdvReac Type Severity Reaction Status Date / Time Penicillins Allergy Intermediate Skin Rash Unverified 05/05/18 21:16 General Stated Complaint: Urinary GLADYS: 4 Review of Systems <Fredy Flynn DO - Last Filed: 05/06/18 13:32> Review of Systems All systems reviewed & are unremarkable except as noted in HPI and below Exam <Fredyvinayak Flynn - Last Filed: 05/06/18 13:32> Narrative Exam Narrative: 1.Const: Well-nourished, Well-developed, appearing stated age 2.Eyes: PERRL, no conjunctival injection, and symmetrical lids. 3.ENT: Atraumatic external nose and ears. Moist MM. Neck: Symmetric, trachea midline, No thyromegaly. 4.CVS: +S1/S2, No murmurs or gallops. Peripheral pulses 2+ and equal in all extremities. Brisk capillary refill in all extremities. 5.RESP: Unlabored respiratory effort. Clear to auscultation bilaterally. No wheezes rales or rhonchi 6.GI: Soft, notable tenderness in the right lower quadrant, negative Dykes sign , notable pain at McBurney's point. Positive obturator sign. Notable left- sided CVA tenderness, and right CVA tenderness. Mild left lower quadrant tenderness and pain. No guarding or rebound. 7.MSK: Normocephalic/Atraumatic, Extremities w/o deformity or ttp No cyanosis or clubbing, Normal movement of all extremities 8.Skin: Warm, Dry. No rashes or lesions. 9.Neuro: heating engineer II-XII grossly intact. Sensation grossly intact, no focal neurologic deficits. 10.Psych: (AAO) x3. Appropriate mood and affect Course <Fredyvinayak Flynn DO - Last Filed: 05/06/18 13:32> Vital Signs Temperature 36.7 C 05/05/18 21:11 Pulse 99 H 05/05/18 21:11 Respiratory Rate 16 05/05/18 21:11 Blood Pressure 146/98 H 05/05/18 21:11 Pulse Oximetry 99 05/05/18 21:11 Temperature 36.7 C 05/05/18 21:11 Temperature Source Skin 05/05/18 21:11 Pulse 99 H 05/05/18 21:11 Respiratory Rate 16 05/05/18 21:11 Respiratory Effort Non-Labored 05/05/18 21:14 Blood Pressure 146/98 H 05/05/18 21:11 Blood Pressure Position Sitting 05/05/18 21:11 Pulse Oximetry 99 05/05/18 21:11 Oxygen Delivery Method Room Air 05/05/18 21:11 Oxygen Flow Rate 0 05/05/18 21:11 Pain Level 6 05/05/18 21:14 Lab/Test Results Lab/Test Results: Laboratory Tests Range/Units 05/05/18 21:29 Urine Color (Yellow) Yellow Urine Clarity Clear Urine pH (5-8) 5.5 Ur Specific [place] (1.005-1.025) <= 1.005 Urine Protein (Negative) mg/dL Negative Urine Ketones (Negative) mg/dL Negative Urine Blood (Negative) Negative Urine Nitrite (Negative) Negative Urine Bilirubin (Negative) Negative Urine Urobilinogen (Up TO 0.2) EU/dL 0.2 Ur Leukocyte Esterase (Negative) Negative Urine Glucose (Negative) mg/dL Negative Sign Out <Fredy Flynn DO - Last Filed: 05/06/18 13:32> Sign Out Data: Sign Out Comment: pending CT Last updated by Fredy Flynn DO at 05/05/18 23:11 Post-Handoff Eval: Patient signed out to me pending vaginal path results. Patient had presented with continued urinary symptoms despite 2 weeks of different antibiotics. She was initially seen by Dr. Flynn, who performed history and physical. [place] she had fairly significant abdominal tenderness so laboratory studies and CT scan were done. Patient laboratory studies were unremarkable. Urinalysis negative. test negative. CT scan unremarkable other than left ovarian cyst which is not likely causing her symptoms. Pelvic exam reported as mild cervical motion tenderness but nothing significant. Vaginal path probe positive for Gardnerella. GC and Chlamydia pending. Unclear if bacterial vaginosis could be causing her symptoms. We will go ahead and put her on Flagyl and have her follow-up with [facility]. Also consider referral to urology, Dr. Foy as most of her complaints are frequency, urgency, dysuria.
[2018-05-05] MEDS: Ondansetron 4 MG/2 ML VIAL IVP (23:02)
[2018-05-05] MEDS: MORPHine 10 MG/ML VIAL 4 MG IVP (23:02)
--- NOTE | 2018-05-05 23:14 | DI.VRAD_ITS ---
EXAM: CT Abdomen and Pelvis With Intravenous Contrast EXAM DATE/TIME: 05/05/2018 9:45 PM CLINICAL HISTORY: 23 years old, female; Signs and symptoms; Other: Rlq pain TECHNIQUE: Axial computed tomography images of the abdomen and pelvis with intravenous contrast. All CT scans at this facility use at least one of these dose optimization techniques: automated exposure control; mA and/or kV adjustment per patient size (includes targeted exams where dose is matched to clinical indication); or iterative reconstruction. Coronal and sagittal reformatted images were created and reviewed. CONTRAST: 100 ml of omnipaque 350 administered intravenously. COMPARISON: CT ABD PELVIS WITH CONTRAST 03/13/2018 11:11 PM FINDINGS: Lower thorax: No acute findings. ABDOMEN: Liver: Normal. No mass. Gallbladder and bile ducts: The gallbladder is contracted but otherwise normal in appearance. Pancreas: Normal. No ductal dilation. Spleen: Normal. No splenomegaly. Adrenals: Normal. No mass. Kidneys and ureters: Normal. No hydronephrosis. Stomach and bowel: Normal. No obstruction. No mucosal thickening. Appendix: No evidence of appendicitis. PELVIS: Bladder: Unremarkable as visualized. Reproductive: Probable dominant ovarian follicular cyst present on the left. This measures 2.7 cm ABDOMEN and PELVIS: Intraperitoneal space: Normal. No free air. No significant fluid collection. Bones/joints: No acute fracture. No dislocation. Soft tissues: Unremarkable. Vasculature: Normal. No abdominal aortic aneurysm. Lymph nodes: Shot[place] nonspecific retroperitoneal lymphadenopathy is noted. Other findings: IMPRESSION: No acute findings Dictated and Authenticated by: Abhinav Draper MD. Ordering:KAYDEN BHARDWAJ MD
[2018-05-06] MEDS: metroNIDAZOLE 500 MG TAB PO (00:41)
[2018-05-06 00:49] VITALS: PULSE 86; RESP 18; TEMP 37; O2SAT 96
[2018-05-07 13:26] LABS: Chlamydia Result Negative; GC Result Negative; Specimen Description CERVIX
== END 2018-05-06 00:48 | disposition home or self-care (01) ==
PROVIDERS: Student in an Organized Health Care Education/Training Program; Emergency Provider Emergency Medicine; PCP Nurse Practitioner
DX: N76.0 Acute vaginitis (principal); B96.89 Other specified bacterial agents as the cause of diseases classified elsewhere; R30.0 Dysuria; Z87.440 Personal history of urinary (tract) infections
CPT/HCPCS: 80053; 83690; 87491; 87591; 96361; 96372; 96374; 96375; 99285; 74177; 81003; 85025; 87480; 87510; 87660; 99284; J1885; J2270; J3490

== ENCOUNTER 2018-07-10 19:23 | Emergency (ER) | payer BC, SELFPAY ==
[2018-07-10] VITALS (8 sets, daily range): BP systolic 110–127; BP diastolic 69–70; PULSE 83–98; RESP 13–20; TEMP 37–37.1; O2SAT 96–99
--- NOTE | 2018-07-10 19:38 | ED.GENADUL_ITS ---
Discharge Plan Disposition Patient Disposition: HOME Condition: Stable Discharge Details Chief Complaint: OD/Poison Clinical Impression: Ingestion, drug, inadvertent or accidental Primary Care Provider: Clara Davidson ED Provider: Ermelinda Escamilla Home Meds and New Rx's Prescriptions: Continue oxybutynin chloride 5 mg tablet extended release 24hr 5 mg PO DAILY Qty: 90 RF: 0 onpjppwb-iydaxydm-ocdqirp fum [Multi Vitamin] 9 mg iron/15 mL Liquid 1 tab PO DAILY RF: 0 lactobacillus combination no.4 [Probiotic] 3 billion cell Capsule 1 cap PO DAILY RF: 0 Discharge Instructions Instructions: Oxybutynin (By mouth) Additional Instructions: Please take your medications only as prescribed. Please return to the emergency department if you develop any new or worsening symptoms or if you become otherwise concerned. It is extremely important that you make an appointment to be seen by your primary care doctor in follow-up this visit. Stand Alone Forms: Work Release Referrals: Clara Davidson [Primary Care Provider] - Medical Decision Making Fabiola Joshi is a 23-year-old woman with history of bladder spasms presenting to the emergency department after inadvertently taking 3 tabs of 5 mg extended release oxybutynin at approximately 6 PM tonight, now with dry mouth, racing heart, vision change. On exam patient is well and nontoxic appearing. She is mildly anxious. Some mild psoriasis, mucous membranes appear dry. Heart rate 90s, normal sinus rhythm on rhythm strip. Exam/history not consistent with attempt to self-harm, polypharmacy/polysubstance ingestion, concern for anticholinergic syndrome. I did discuss patient presentation with poison control, who recommended no observation time, symptomatic treatment, no concern for significant overdose with 15 mg. Given patient with anxiety, will give Ativan, brief observation, on telemetry. Anticipate discharge home. Patient sleeping throughout ER stay. Upon awakening she reports that she feels somewhat better, continues to have dry mouth. Patient requesting discharge at this time. Exam/history is not consistent with acute emergent life-threatening process at this time. Lengthy discussion with patient regarding proper use of her medication, return to emergency department precautions, and importance of outpatient follow-up with PCP. She is amenable to the plan. Medical Records Medical records reviewed: Yes I reviewed the patient's medical records. HPI General Mode of arrival: ambulatory . Date/Time Provider Initiated Documentation: 07/10/18 19:36 . Limitations to Documentation: no limitations . Information obtained by: patient, RN notes reviewed and old records reviewed . HPI Narrative: Fabiola Joshi is a 23-year-old woman with history of bladder spasms presenting to the emergency department after inadvertently taking too much medication. Patient reports that she was headed to work tonight and felt bladder spasms. In the past, patient has had bladder spasm medication that you take 3 times a day. Patient thought that she was taking that medication, and instead took 3 tabs of 5 mg oxybutynin extended release, which is a once daily drug. Patient relies directly after that she had taken the wrong medication. This occurred at approximately 6:00 tonight. Patient reports that 30 minutes later she began to feel that her heart was beating quickly, she had some changes in her vision, and dry mouth, and came to the emergency department. At this time she is having no pain, shortness of breath, cough, rash. She has continued dry mouth, continued blurry vision, and mild sensation that her heart is racing. Patient reports that she has not taken any other bladder spasm medication in the past few days. She denies any other ingestions, or any attempt to harm herself. No recent illnesses. Otherwise in her usual state of health. Has been eating and drinking as usual. Related Data Home Medications Medication Instructions Recorded Confirmed lactobacillus combination no.4 1 cap PO DAILY 04/23/18 07/10/18 [Probiotic] hynuepdx-zarcuzty-mqkxhbz fum 1 tab PO DAILY 04/23/18 07/10/18 [Multi Vitamin] oxybutynin chloride ER 5 mg 5 mg PO DAILY #90 tab 06/09/18 07/10/18 tablet,extended release 24 hr Previous Rx's Medication Instructions Recorded oxybutynin chloride ER 5 mg 5 mg PO DAILY #90 tab 06/09/18 tablet,extended release 24 hr Allergies Allergy/AdvReac Type Severity Reaction Status Date / Time Penicillins Allergy Intermediate Skin Rash Unverified 07/10/18 19:38 epinephrine Allergy Verified 07/10/18 19:38 General Stated Complaint: OD/Poison GLADYS: 3 Review of Systems Review of Systems Constitutional: denies fevers Eyes: denies eye pain, reports visual change ENT: denies facial pain, dental pain, sore throat, reports dry mouth Cardiovascular: denies chest pain, reports racing heart Respiratory: denies SOB, cough GI: denies abdominal pain, vomiting, diarrhea : denies flank pain MSK: denies back pain, neck pain, arthralgias, myalgias Skin: denies rash Neuro: denies headaches, lightheadedness, weakness PFSH Social History Smoking/Tobacco Use Status: Never Social History Smoking/Tobacco Use Status: Never Female Reproductive History Menstrual control method: condoms Exam Narrative Exam Narrative: Constitutional: well and deu-umock-qshxvjbrg, pleasant, conversing normally HENT: head atraumatic, normocephalic normal inspection, mucous membranes dry Eyes: conjunctiva normal, sclera normal, pupils 4-5mm b/l Neck: no stridor, normal ROM, trachea midline Chest: normal inspection Resp: normal work of breathing, LCTAB Cardio: normal rate, normal rhythm, no murmur appreciated Skin: warm, dry, normal color, no rash Neuro: alert, not altered, grossly non-focal, normal tone Ext: no edema Psych: Mildly anxious, normal affect, normal behavior Course Vital Signs Temperature 37.1 C 07/10/18 19:25 Pulse 93 H 07/10/18 19:25 Respiratory Rate 20 07/10/18 19:25 Blood Pressure 127/69 07/10/18 19:25 Pulse Oximetry 98 07/10/18 19:25 Temperature 37.1 C 07/10/18 19:25 Temperature Source Temporal Artery Scan 07/10/18 19:25 Pulse 93 H 07/10/18 19:25 Respiratory Rate 20 07/10/18 19:25 Blood Pressure 127/69 07/10/18 19:25 Blood Pressure Position Sitting 07/10/18 19:25 Pulse Oximetry 98 07/10/18 19:25 Oxygen Delivery Method Room Air 07/10/18 19:25 Oxygen Flow Rate 0 07/10/18 19:25 Pain Level 0 07/10/18 19:25
[2018-07-10] MEDS: LORazepam 1 MG TAB PO (20:06)
== END 2018-07-10 21:54 | disposition home or self-care (01) ==
PROVIDERS: Emergency Provider Student in an Organized Health Care Education/Training Program; PCP Nurse Practitioner
DX: T44.3X1A Poisoning by other parasympatholytics [anticholinergics and antimuscarinics] and spasmolytics, accidental (unintentional), initial encounter (principal); R00.1 Bradycardia, unspecified
CPT/HCPCS: 93005; 99283; 93010

== ENCOUNTER 2019-05-25 18:04 | Outpatient (REF) | payer BC, SELFPAY ==
[2019-05-25 21:37] LABS: TSH (W/Ref FT4) 1.64 uIU/mL (0.36-3.74)
== END 2019-05-25 18:24 ==
LOC: NCHCN 18:04
PROVIDERS: PCP Nurse Practitioner; Visit Provider Nurse Practitioner Family
DX: F41.8 Other specified anxiety disorders (principal); R63.5 Abnormal weight gain; F43.10 Post-traumatic stress disorder, unspecified; G43.909 Migraine, unspecified, not intractable, without status migrainosus; N30.10 Interstitial cystitis (chronic) without hematuria
CPT/HCPCS: 84443

== ENCOUNTER 2019-08-17 15:57 | Outpatient (REF) | payer BC, SELFPAY ==
[2019-08-17 21:19] LABS: Abs Immature Grans 0.02 k/cumm (0.0-0.09); Absolute Basophil Count 0.03 k/cumm (0.0-0.2); Absolute Eosinophil Count 0.12 k/cumm (0.0-0.7); Absolute Lymphocyte Count 2.56 k/cumm (1.2-3.4); Absolute Monocyte Count 1.03 k/cumm (0.11-0.7); Absolute Neutrophil Count 5.37 k/cumm (1.2-6.7); Basophils % 0.3; Eosinophils % 1.3; HGB 15.5 g/dL (12.0-15.5); Immature Grans % 0.2 %; Mean Corp. HGB Concentration 34.4 g/dL (32.0-36.0); Mean Corpuscular Hemoglobin 31.9 pg (27.0-33.0); Mean Corpuscular Volume 92.6 fL (80-95); Mean Platelet Volume 9.5 fL (8.0-11.0); Monocytes % 11.3; Neutrophils % 58.9; Platelet Count 424 x1000/uL (130-400); RBC 4.86 m/cumm (4.00-5.20); RBC Distribution Width 12.8 % (11.7-14.6); White Blood Cell Count 9.13 k/cumm (4.4-10.8)
[2019-08-17 21:25] LABS: Iron 89 ug/dL (50-170); Total Iron Binding Capacity 381 ug/dL (250-450); Transferrin Sat 23 % (15-50)
[2019-08-17 21:53] LABS: ALT 34 U/L (14-59); AST 14 U/L (15-37); Albumin 4.3 g/dL (3.4-5.0); Alkaline Phosphatase 107 U/L (46-116); Anion Gap 9.3 mmol/L (3-11); BUN 9 mg/dL (7-18); Bilirubin, Total 0.7 mg/dL (0.2-1.0); CO2 29.7 mmol/L (21.0-32.0); Calcium 9.7 mg/dL (8.5-10.1); Chloride 102 mmol/L (98-107); Glucose 70 mg/dL (74-106); Magnesium 2.1 mg/dL (1.8-2.4); Sodium 141 mmol/L (136-145); Vitamin B12 452 pg/mL (193-986)
[2019-08-19 11:00] LABS: Hepatitis A Antibody IgM Negative (Negative); Hepatitis B Core Antibody Negative (Negative); Hepatitis B surface Ag Negative (Negative); Hepatitis C Ab w Rflx HCV PCR Negative (Negative)
== END 2019-08-17 16:17 ==
LOC: NCHCN 15:57
PROVIDERS: PCP Nurse Practitioner; Visit Provider Nurse Practitioner Family
DX: R00.2 Palpitations (principal); R00.0 Tachycardia, unspecified; R42 Dizziness and giddiness; R74.0 Nonspecific elevation of levels of transaminase and lactic acid dehydrogenase [LDH]; K21.9 Gastro-esophageal reflux disease without esophagitis; Z00.00 Encounter for general adult medical examination without abnormal findings; N32.81 Overactive bladder; Z11.59 Encounter for screening for other viral diseases
CPT/HCPCS: 80053; 86704; 86709; 86803; 87340; 82607; 83540; 83550; 83735; 84443; 85025

== ENCOUNTER 2021-11-09 09:41 | Outpatient (REF) | payer OTHER, SELFPAY ==
--- NOTE | 2021-11-09 09:00 | PAPFT_PTH ---
PATIENT: Fabiola Joshi LOC: [facility] U#:[id number] AGE/SX: 26/F ROOM: RE11/09/[address]: Swetha Demarco : 1995 BED: DIS: 11/09/2021 SPEC #: [id number] RECD: 11/09/21 17:16 STATUS: LONNIE VILLAGOMEZ #: [id number] BEATRIS: 11/09/21 09:[address]: Swetha Demarco DEPT: [facility] Cytology RECD BY: Payal Meeks ENTERED: 11/09/21 17:16 SP TYPE: PAPFT OT DR: Epifanio Salas Marita Tissues: 1 - CX/ENDOCX FOR PAP SMEARS Procedures: PAP THIN PREP/[facility] Screening Comments: [id number] (CHLAMYDIA/GC)
[2021-11-09 16:42] LABS: Abs Immature Grans 0.03 10^3/uL (0.0-0.06); Absolute Basophil Count 0.09 10^3/uL (0.0-0.2); Absolute Eosinophil Count 0.18 10^3/uL (0.0-0.7); Absolute Lymphocyte Count 2.46 10^3/uL (1.2-3.4); Absolute Monocyte Count 0.77 10^3/uL (0.1-0.8); Absolute Neutrophil Count 5.32 10^3/uL (1.2-6.7); HGB 16.2 g/dL (11.2-15.7); Immature Grans % 0.3; Lymphocytes % 27.8; MCH 32.6 pg (27.0-33.0); MCHC 34.5 % (32.0-36.0); MCV 94.6 fL (80-95); MPV 9.5 fL (8.0-11.0); Monocytes % 8.7; Neutrophils % 60.2; Nucleated RBC 0 %; Platelet Count 457 10^3/uL (130-400); RBC 4.97 10^6/uL (3.93-5.22); RDW 11.9 % (11.7-14.6); RDW-SD 41.2 fL; WBC 8.85 10^3/uL (4.4-10.8)
[2021-11-09 16:45] LABS: ESR 4 mm/hr (0-20)
[2021-11-09 17:08] LABS: Iron 112 ug/dL (50-170); Total Iron Binding Capacity 362 ug/dL (250-450); Transferrin Sat 31 % (15-50)
[2021-11-09 17:43] LABS: ALT 41 U/L (14-59); AST 15 U/L (15-37); Albumin 4.2 g/dL (3.4-5.0); Alkaline Phosphatase 108 U/L (46-116); Anion Gap 8.7 mmol/L (3-11); BUN 11 mg/dL (7-18); Bilirubin, Total 0.7 mg/dL (0.2-1.0); CO2 30.3 mmol/L (21.0-32.0); CREATININE 0.8 mg/dL (0.55-1.02); Calcium 9.6 mg/dL (8.5-10.1); Calculated LDL 165 mg/dL (<100); Chloride 102 mmol/L (98-107); Cholesterol 251 mg/dL (<200); Ferritin 170 ng/mL (8-252); Glucose 99 mg/dL (74-106); HDL Cholesterol 49 mg/dL (40-60); Potassium 4.4 mmol/L (3.5-5.1); Sodium 141 mmol/L (136-145); TSH (W/Ref FT4) 1.48 uIU/mL (0.36-3.74); Total Protein 7.7 g/dL (6.4-8.2); Triglyceride 186 mg/dL (<150); Vitamin B12 333 pg/mL (193-986)
[2021-11-09 18:40] LABS: C-Reactive Protein 0.36 mg/dL (0.0-0.3)
[2021-11-12 10:48] LABS: Lyme Ab w Rflx to Lyme Confirm Positive (Negative)
[2021-11-12 12:04] LABS: Lyme IgG Ab Negative (Negative); Lyme IgM Ab Negative (Negative)
[2021-11-12 13:51] LABS: ANA Interpretation Positive (Negative); ANA Titer Pattern 1:80 Speckled
[2021-11-12 15:04] LABS: Chlamydia Result Negative (Negative); GC Result Negative (Negative)
[2021-11-13 23:07] LABS: Anaplasma phagocytophilum Negative (Negative); B. miyamotoi PCR Negative (Negative); Babesia divergens/MO-1 Negative (Negative); Babesia duncani Negative (Negative); Babesia microti Negative (Negative); Ehrlichia chaffeensis Negative (Negative); Ehrlichia ewingii/canis Negative (Negative); Ehrlichia muris eauclairensis Negative (Negative)
== END 2021-11-09 09:42 | disposition home or self-care (01) ==
LOC: NCHCN 09:41
PROVIDERS: PCP Nurse Practitioner; Visit Provider Nurse Practitioner Family
DX: Z00.00 Encounter for general adult medical examination without abnormal findings (principal); Z12.4 Encounter for screening for malignant neoplasm of cervix; Z01.419 Encounter for gynecological examination (general) (routine) without abnormal findings; M25.50 Pain in unspecified joint; R53.83 Other fatigue; D75.1 Secondary polycythemia; R74.01 Elevation of levels of liver transaminase levels; G43.109 Migraine with aura, not intractable, without status migrainosus; E66.3 Overweight
CPT/HCPCS: 80053; 80061; 85652; 86617; 87491; 87591; 87798; 88142; 82607; 82728; 83540; 83550; 84443; 85025; 86038; 86140; 86618

== ENCOUNTER 2022-11-08 16:23 | Outpatient (REF) | payer OTHER, SELFPAY ==
[2022-11-08 15:22] LABS: Abs Immature Grans 0.03 10^3/uL (0.0-0.06); Absolute Eosinophil Count 0.13 10^3/uL (0.0-0.7); Absolute Lymphocyte Count 2.88 10^3/uL (1.2-3.4); Absolute Monocyte Count 0.69 10^3/uL (0.1-0.8); Absolute Neutrophil Count 6.28 10^3/uL (1.2-6.7); Eosinophils % 1.3; HCT 47.1 % (36.0-46.0); HGB 16.8 g/dL (11.2-15.7); Immature Grans % 0.3; Lymphocytes % 28.5; MCH 32.7 pg (27.0-33.0); MCHC 35.7 % (32.0-36.0); MCV 92 fL (80-95); MPV 9.2 fL (8.0-11.0); Monocytes % 6.8; Neutrophils % 62.1; Platelet Count 400 10^3/uL (130-400); RBC 5.14 10^6/uL (3.93-5.22); RDW-SD 40.3 fL; WBC 10.11 10^3/uL (4.4-10.8)
[2022-11-11 16:10] LABS: ANA Interpretation Positive (Negative); ANA Titer Pattern 1:80 Speckled
== END 2022-11-08 16:24 | disposition home or self-care (01) ==
LOC: NCHCN 16:23
PROVIDERS: PCP Nurse Practitioner; Visit Provider Nurse Practitioner Family
DX: Z00.00 Encounter for general adult medical examination without abnormal findings (principal); E78.5 Hyperlipidemia, unspecified; F41.8 Other specified anxiety disorders; G43.909 Migraine, unspecified, not intractable, without status migrainosus; G44.209 Tension-type headache, unspecified, not intractable; F43.20 Adjustment disorder, unspecified; E66.8 Other obesity
CPT/HCPCS: 85025; 86038

== ENCOUNTER 2023-11-20 16:36 | Outpatient (REF) | payer OTHER, SELFPAY ==
--- NOTE | 2023-11-20 12:45 | PAPFT_PTH ---
PATIENT: Fabiola Joshi LOC: [facility] U#:[id number] AGE/SX: 28/F ROOM: RE11/20/[address]: Swetha Demarco : 1995 BED: DIS: 11/20/2023 SPEC #: [id number] RECD: 11/21/23 12:58 STATUS: LONNIE REQ #: [id number] BEATRIS: 11/20/23 12:[address]: Swetha Demarco DEPT: [facility] Cytology RECD BY: Payal Meeks ENTERED: 11/21/23 12:58 SP TYPE: PAPFT STEVEN DR: Unknown,Unknown Tissues: 1 - CX/ENDOCX FOR PAP SMEARS Procedures: PAP THIN PREP/[facility] Screening HPV DNA PROBE Comments: [id number] (HPV 16 & 18/45) (CHLAMYDIA/GC)
[2023-11-20 21:07] LABS: Hemoglobin A1C 5.2 % (<5.7)
[2023-11-20 21:08] LABS: Anion Gap 11.7 mmol/L (3-11); BUN 11 mg/dL (7-18); CO2 28.3 mmol/L (21.0-32.0); CREATININE 0.8 mg/dL (0.55-1.02); Calculated LDL 189 mg/dL (<100); Chloride 102 mmol/L (98-107); Cholesterol 274 mg/dL (<200); Estimated GFR 101.59 (mL/min/1.73m2); Glucose 90 mg/dL (74-106); HDL Cholesterol 47 mg/dL (40-60); Potassium 4.7 mmol/L (3.5-5.1); Sodium 142 mmol/L (136-145); TSH (W/Ref FT4) 1.87 uIU/mL (0.36-3.74); Triglyceride 194 mg/dL (<150)
[2023-11-21 18:55] LABS: Hepatitis C Ab w Rflx HCV PCR Negative (Negative)
[2023-11-21 18:56] LABS: HIV-1/2 Ag & Ab Screen Negative (Negative)
[2023-11-24 11:04] LABS: Syphilis Serology (RPR) Negative (Negative)
[2023-11-24 16:05] LABS: ANA Interpretation Positive (Negative); ANA Titer Pattern 1:160 Speckled
[2023-11-24 16:36] LABS: Chlamydia Result Negative (Negative); GC Result Negative (Negative)
== END 2023-11-20 16:37 | disposition home or self-care (01) ==
LOC: NCHCN 16:36
PROVIDERS: Visit Provider Nurse Practitioner Family
DX: Z01.419 Encounter for gynecological examination (general) (routine) without abnormal findings (principal); Z00.00 Encounter for general adult medical examination without abnormal findings; R53.83 Other fatigue; E66.9 Obesity, unspecified; R76.0 Raised antibody titer
CPT/HCPCS: 80048; 80061; 86803; 87389; 87491; 87591; 88142; 83036; 84443; 86038; 86592; 87624

== ENCOUNTER 2024-11-25 16:19 | Outpatient (REF) | payer OTHER, SELFPAY ==
--- NOTE | 2024-11-25 14:00 | PAPFT_PTH ---
PATIENT: Fabiola Joshi LOC: [facility] U#:[id number] AGE/SX: 29/F ROOM: RE11/25/[address]: Swetha Demarco : 1995 BED: DIS: 11/25/2024 SPEC #: [id number] RECD: 11/26/24 13:11 STATUS: LONNIE REJared #: [id number] BEATRIS: 11/25/24 14:[address]: Swetha Demarco DEPT: [facility] Cytology RECD BY: Payal Meeks ENTERED: 11/26/24 13:11 SP TYPE: PAPFT STEVEN DR: Unknown,Unknown Tissues: 1 - CX/ENDOCX FOR PAP SMEARS Procedures: PAP THIN PREP/[facility] Screening HPV DNA PROBE Comments: [id number] (HPV 16 & 18/45) (CHLAMYDIA/GC)
[2024-11-26 19:47] LABS: Hepatitis C Ab w Rflx HCV PCR Negative (Negative)
[2024-11-29 11:35] LABS: Syphilis Serology (RPR) Negative (Negative)
[2024-11-29 12:08] LABS: Chlamydia Result Negative (Negative); GC Result Negative (Negative)
== END 2024-11-25 16:20 | disposition home or self-care (01) ==
LOC: NCHCN 16:19
PROVIDERS: Visit Provider Nurse Practitioner Family
DX: Z11.3 Encounter for screening for infections with a predominantly sexual mode of transmission (principal); Z12.4 Encounter for screening for malignant neoplasm of cervix; Z00.00 Encounter for general adult medical examination without abnormal findings
CPT/HCPCS: 86803; 87389; 87491; 87591; 88142; 86592; 87624